=== PATIENT | male | born 1975 | race Caucasian/White ===

== ENCOUNTER 2022-03-04 08:56 | Day surgery (SDC) | payer BC ==
[~2022-03-04] VITALS: Ht 165.1 cm; Wt 70.0 kg
[2022-03-04] MEDS ORDERED: ZYRTEC5 MG PO (09:31)
[2022-03-04 09:32] VITALS: BP 124/98; PULSE 90; TEMP 97.9
[2022-03-04] MEDS ORDERED: PATADAY5 ML OP (09:32)
[2022-03-04 10:35] VITALS: BP 127/98; PULSE 85; TEMP 97.4
--- NOTE | 2022-03-04 10:41 | NUR ---
1035 - PT arrives and was settled by Amna CARVER. Verbal report and vitals then obtained. PT A&Ox3; denies pain/nausea and was provided snack and drink per PT request. PT oriented to room and call hdz within reach, non-slip socks remain on. Will monitor per intervals. IFV continue.
[2022-03-04 10:55] VITALS: BP 139/69; PULSE 79
[2022-03-04 11:10] VITALS: BP 131/94; PULSE 77
--- NOTE | 2022-03-04 11:15 | NUR ---
1055 - VSS. is speaking w/ PT. Ride contacted by RN per PT request. 1110 - VSS. PT is tolerating snack and drink well. PT expressed desire to be discharged. Call hdz within reach.
[2022-03-04 11:20] VITALS: BP 134/90; PULSE 79
--- NOTE | 2022-03-04 11:24 | NUR ---
1120 - VSS. IV and monitors discontinued. Catheter tip intact and pressure bandage applied; no redness or swelling noted. DC instructions and educational material reviewed w/ PT who verbalized understanding and signed. Questions answered to PT satisfaction. PT then refused RN assistance changing into personal clothes. Blankets removed and legs lowered. Call hdz within reach if needed.
--- NOTE | 2022-03-04 11:33 | NUR ---
1125 - PT is done changing. Awaiting ride. Call hdz within reach if needed.
--- NOTE | 2022-03-04 11:39 | NUR ---
1135 - PT dismissed from [facility] via wheelchair to the PT entrence by Kathrine CARVER. PT has DC packet and personal belongings and was transferred into the care of his , who is driving private car.
== END 2022-03-04 11:40 | disposition home or self-care (01) ==
LOC: SDCO 08:56
DX: Z12.11 Encounter for screening for malignant neoplasm of colon (principal); D12.0 Benign neoplasm of cecum; D12.2 Benign neoplasm of ascending colon; K63.5 Polyp of colon; K21.9 Gastro-esophageal reflux disease without esophagitis; Z87.891 Personal history of nicotine dependence
CPT/HCPCS: J2704; J7120